=== PATIENT | female | born 1945 | race Caucasian/White ===

== ENCOUNTER 2020-09-20 07:39 | Day surgery (SDC) | payer MEDICARE, OTHER, SELFPAY ==
--- NOTE | 2020-09-07 15:23 | MHC.SHP ---
Pre-Procedural Eval Section A The patient is an INPATIENT: No The History & Physical has been completed within 30 days and I have reviewed it.: Yes Section B Chief Complaint: Cataract Right Eye Allergies: Allergies Allergy/AdvReac Type Severity Reaction Status Date / Time amoxicillin [AMOXICILLIN] Allergy Unknown ANAPHYLAXIS Unverified 07/08/20 14:55 Penicillins [PENICILLINS] Allergy Unknown ANAPHYLAXIS Unverified 07/08/20 14:55 Sulfa (Sulfonamide Allergy Unknown RASH Unverified 07/08/20 14:55 Antibiotics) [SULFA (SULFONAMIDE ANTIBIOTICS)] zoster vaccine live Allergy Unknown FEVER, RASH Unverified 07/08/20 14:55 [From ZOSTAVAX (PF)] Plan Diagnosis/Plan: Unchanged Patient has been examined and remains a candidate for the planned procedure
--- NOTE | 2020-09-13 14:23 | P.CONAN_ITS ---
Documented by User: Merna Pearson 09/15/20 08:29 HPI - Anesthesia Eval Consult details Narrative: 75yo F for Cataract Extraction IOL [facility] Past Medical History Medical History Arthritis Depression Diabetes Elevated cholesterol History of anxiety HTN (hypertension) Hx of cancer of uterus Multiple drug hypersensitivity syndrome Murmur Sleep apnea Surgical History Surgical History (Updated 09/13/20 @ 15:09 by Susanna Andersen) Hx of hand surgery Hx of hysterectomy, total Hx of left cataract extraction Social History Social History Smoking Status: Never smoker Use of substances other than those prescribed or required for medical reasons: No Have you been hit, kicked, punched, or otherwise hurt by someone within the past year? If so, by whom?: No Advance Directives Information Provided: No Recently lost weight without trying: No Meds Allergies Allergy/AdvReac Type Severity Reaction Status Date / Time amoxicillin [AMOXICILLIN] Allergy Severe ANAPHYLAXIS Verified 09/20/20 08:45 Penicillins [PENICILLINS] Allergy Severe ANAPHYLAXIS Verified 09/20/20 08:45 Sulfa (Sulfonamide Allergy Intermediate RASH Verified 09/20/20 08:45 Antibiotics) [SULFA (SULFONAMIDE ANTIBIOTICS)] zoster vaccine live Allergy Intermediate FEVER, RASH Verified 09/20/20 08:45 [From ZOSTAVAX (PF)] Home Medications Medication Instructions Recorded Confirmed Type chlorthalidone 1 tab PO DAILY 09/13/20 09/13/20 History losartan 2 tab PO DAILY 09/13/20 09/13/20 History multivitamin 1 tab PO DAILY 09/13/20 09/13/20 History niacin 1 tab PO DAILY 09/13/20 09/13/20 History trazodone 50 mg PO BEDTIME 09/13/20 09/13/20 History Exam Exam Date and Time: September 13, 2020 1423 Assessment and Plan Assessment Anesthesia Assessment: Chart Reviewed Documented by User: Tiffany Alatorre 09/20/20 08:45 [facility] Past Medical History Medical History Arthritis Depression Diabetes Elevated cholesterol History of anxiety HTN (hypertension) Hx of cancer of uterus Multiple drug hypersensitivity syndrome Murmur Sleep apnea Surgical History Surgical History (Updated 09/13/20 @ 15:09 by Susanna Andersen) Hx of hand surgery Hx of hysterectomy, total Hx of left cataract extraction Social History Social History Smoking Status: Never smoker Use of substances other than those prescribed or required for medical reasons: No Have you been hit, kicked, punched, or otherwise hurt by someone within the past year? If so, by whom?: No Advance Directives Information Provided: No Recently lost weight without trying: No Meds Allergies Allergy/AdvReac Type Severity Reaction Status Date / Time amoxicillin [AMOXICILLIN] Allergy Severe ANAPHYLAXIS Verified 09/20/20 08:45 Penicillins [PENICILLINS] Allergy Severe ANAPHYLAXIS Verified 09/20/20 08:45 Sulfa (Sulfonamide Allergy Intermediate RASH Verified 09/20/20 08:45 Antibiotics) [SULFA (SULFONAMIDE ANTIBIOTICS)] zoster vaccine live Allergy Intermediate FEVER, RASH Verified 09/20/20 08:45 [From ZOSTAVAX (PF)] Home Medications Medication Instructions Recorded Confirmed Type chlorthalidone 1 tab PO DAILY 09/13/20 09/13/20 History losartan 2 tab PO DAILY 09/13/20 09/13/20 History multivitamin 1 tab PO DAILY 09/13/20 09/13/20 History niacin 1 tab PO DAILY 09/13/20 09/13/20 History trazodone 50 mg PO BEDTIME 09/13/20 09/13/20 History Exam Airway Mallampati Class: III (Implant upper right) TM Dist: >3cm Neck ROM: Full Heart: RRR Lungs: CTA BL Assessment and Plan Assessment Anesthesia Assessment: Anesthesia Plan Discussed and Chart Reviewed Final Anesthetic Review NPO: Yes ASA Class: III Final Preanesthetic Review: Meds/Allgs Chart Reviewed and Consent Obtained/Reviewed Patient Risk: Low Procedure Risk: Low Anesthetic Plan Anesthetic Plan: MAC: Disposition: Standard PACU
[2020-09-13 14:59] VITALS: BMI 49.6
[2020-09-20 08:45] VITALS: BP 150/87; PULSE 65; RESP 16; TEMP 36.2; O2SAT 96
[2020-09-20] MEDS: Lactated Ringers 500 ML 50 ML IV (09:00)
[2020-09-20] MEDS: Tetracaine HCl/PF 0.5% Oph Sol 4 ML DROPS 1 DROP EYE-RIGHT (09:00)
[2020-09-20] MEDS: Tropicamide 1 % Ophth Sol 3 ML BTL 1 DROP EYE-RIGHT ×3 (09:03→09:12)
[2020-09-20 09:07] LABS: Glucose, Whole Blood 150 mg/dL (60-115)
--- NOTE | 2020-09-20 09:44 | P.PCNO_ITS ---
Ophthalmology Procedure Procedure Ophthalmology Viscoelastic: Healchito Osoriot Dual Pack Pro Ophthalmology Lenses: TECNIS [id number] (22) Procedure Notes: PREOPERATIVE DIAGNOSIS: Decreased visual acuity right eye secondary to cataract POSTOPERATIVE DIAGNOSIS: Same PROCEDURE: Right cataract extraction with toric multifocal intraocular lens axis 177 insertion SURGEON: Hayden Birmingham M.D. ANESTHESIA: Topical/MAC ESTIMATED BLOOD LOSS: None COMPLICATIONS: None After obtaining informed consent, the patient was brought to the operating room suite and placed in the supine position. After adequate sedation per anesthesia, topical drops of Tetracaine were given to the right eye. The eye was then prepped and draped in the usual sterile fashion. The operating room microscope was then positioned over the operative eye and a lid speculum placed. A paracentesis was created. Viscoelastic was then instilled into the anterior chamber. A three plane incision was then created temporally, utilizing a 2.85 mm keratome. Capsulotomy forceps were then utilized to create a circular tear capsulotomy. Hydrodissect ion and hydrodelineation were carried out until adequate mobilization of the nucleus occurred. Phacoemulsification was then utilized to remove the dense central nucleus followed by removal of the cortical material utilizing the automated aspiration irrigation unit. Viscoelastic was instilled into the posterior capsular bag followed by placement of a toric multifocal posterior chamber intraocular lens axis 177 degreeswithout difficulty. The residual Viscoelastic was then removed utilizing the automated IA machine. The wound was checked and found to be watertight. The patient tolerated the procedure well and the lid speculum was removed. Intracameral injection of Vigamox 0.1 mL followed by a subtenon injection of Kenalog-40 0.2 mL were administered. The patient will be seen in the a.m.
[2020-09-20 09:45] VITALS: BP 179/98; PULSE 67; RESP 16; TEMP 36.5; O2SAT 96
== END 2020-09-20 10:05 | disposition home or self-care (01) ==
PROVIDERS: Visit Provider Ophthalmology
PROC: (CPT 66985; principal; 2020-09-20 09:50)
DX: H25.11 Age-related nuclear cataract, right eye (principal); E11.9 Type 2 diabetes mellitus without complications; I10 Essential (primary) hypertension; Z79.82 Long term (current) use of aspirin; Z79.84 Long term (current) use of oral hypoglycemic drugs; Z88.0 Allergy status to penicillin; Z88.2 Allergy status to sulfonamides
CPT/HCPCS: 66984; 82947; J2250; J3010; J3300; V2788